=== PATIENT | female | born 1970 ===

== ENCOUNTER 2018-04-23 11:55 | Outpatient (CLI) | payer BC | END 2018-04-23 11:56 | disposition home or self-care (01) | LOC: C.MAMMO 11:56 | DX: Z12.31 Encounter for screening mammogram for malignant neoplasm of breast (principal) ==

== ENCOUNTER 2018-04-29 14:57 | Outpatient (CLI) | payer BC | END 2018-04-29 14:58 | disposition home or self-care (01) | LOC: C.USIC 14:57 | DX: R94.5 Abnormal results of liver function studies (principal) ==

== ENCOUNTER 2018-05-24 11:55 | Outpatient (CLI) | payer BC | END 2018-05-24 11:56 | disposition home or self-care (01) | LOC: C.USIC 11:55 ==